=== PATIENT | male | born 1985 | race Caucasian/White ===

== ENCOUNTER 2023-11-17 19:19 | Inpatient (IN) ==
[2023-11-17] MEDS: Ondansetron 4 mg VIAL 2 MG/ML 2 ml VIAL IV ONE (19:41)
[2023-11-17] MEDS: fentaNYL 100 mcg/2 ml 50 MCG/ML VIAL IV SLOW PU ONE (19:41)
[2023-11-17] MEDS: Lactated Ringers 1000 ml BAG 1,000 ML IV ONE ×2 (19:41→21:47)
[2023-11-17 19:57] LABS: ABS Basophils 0.2 10^3/uL (0.0-0.1); ABS Monocytes 0.6 10^3/uL (0.0-1.1); ABS Neutrophils 10.3 10^3/uL (1.5-7.6); ABS Nucleated RBC 0.01 10^3/ul; Eosinophil % 0.3 %; Hematocrit 43.1 % (38-53); Hemoglobin 14.9 g/dL (13.2-16.3); Mean Corpuscular Hemoglobin 30.6 pg (27-33); Mean Corpuscular Hgb Conc 34.5 g/dL (31-36); Mean Corpuscular Volume 88.7 fL (80-97); Mean Platelet Volume 8.5 fL (7.5-11.2); Nucleated Red Blood Cells % 0.1 %/100WBC (0.0-0.8); Platelet Count 245 10^3/uL (150-450); Red Blood Count 4.86 10^6/uL (4.06-5.63); Red Cell Distribution Width 14.4 % (12-17); White Blood Count 13.2 10^3/uL (3.6-10.2)
[2023-11-17 20:14] LABS: Albumin 4.6 g/dL (3.2-5.2); Calcium 9.7 mg/dL (8.6-10.3); Creatinine, Serum 0.99 mg/dL (0.67-1.17); Globulin 2.3 g/dL (2-4); Potassium 3.6 mmol/L (3.5-5.0); Total Bilirubin 0.6 mg/dL (0.2-1.0); Total Protein 6.9 g/dL (6.4-8.9); eGFR CKD-EPI 101.2 (>60)
[2023-11-17] MEDS ORDERED: Morphine 4 MG/ML VIAL (1 ml) IV PRN ×2 (20:42→22:08)
[2023-11-17] MEDS ORDERED: Morphine 2 MG/ML SYRINGE IV PRN (20:42)
[2023-11-17] MEDS ORDERED: Ondansetron ODT 4 mg TAB 4 MG TAB SL PRN (20:44)
[2023-11-17] MEDS: Morphine 4 MG/ML VIAL (1 ml) IV ONE ×2 (21:46→22:34)
[2023-11-17] MEDS: Acetaminophen IV 1 GM/100ML 1,000 MG/100 ML BAG IV SCH (21:46)
[2023-11-18] MEDS ORDERED: HYDROmorphone 0.5 MG/0.5 ML SYRINGE IV SLOW PU PRN (00:45)
[2023-11-18] MEDS: fentaNYL 100 mcg/2 ml 50 MCG/ML VIAL IV SLOW PU PRN (00:58)
[2023-11-18] MEDS: HYDROmorphone 0.5 MG/0.5 ML SYRINGE IV SLOW PU PRN (03:00)
[2023-11-18 06:00] LABS: ABS Lymphocytes 1.2 10^3/uL (1.0-4.8); ABS Monocytes 0.8 10^3/uL (0.0-1.1); Hematocrit 37.2 % (38-53); Lymphocyte % 13.2 %; Mean Corpuscular Volume 88.4 fL (80-97); Mean Platelet Volume 8.3 fL (7.5-11.2); Platelet Count 201 10^3/uL (150-450); Red Cell Distribution Width 14.2 % (12-17)
[2023-11-18 06:23] LABS: Calcium 8.6 mg/dL (8.6-10.3); Creatinine, Serum 0.89 mg/dL (0.67-1.17); Magnesium 1.7 mg/dL (1.9-2.7); Potassium 3.7 mmol/L (3.5-5.0); eGFR CKD-EPI 113.9 (>60)
[2023-11-18] MEDS: Magnesium Sulfate IV 1GM/100ML 1 GM/100 ML BAG IV ONE (09:04)
[2023-11-18] MEDS: Polyethylene Glycol 3350 17 GM PACKET PO SCH (09:16)
[2023-11-18] MEDS ORDERED: Enoxaparin 40 MG/0.4 ML SYR SUBCUT SCH (11:00)
[2023-11-18] MEDS ORDERED: Propofol 10 MG/ML 20 ML BTL ONE (14:47)
[2023-11-18] MEDS ORDERED: fentaNYL 100 mcg/2 ml 50 MCG/ML VIAL ONE ×2 (14:49→18:04)
[2023-11-18] MEDS ORDERED: Midazolam 2 mg/2 ml VIAL 1 mg/ml 2 ml VIAL (2 mg) ONE (14:50)
[2023-11-18] MEDS ORDERED: ceFAZolin 2 GM in NS PREMIX 2 GM/100 ML BAG IVPB ONE (15:15)
[2023-11-18] MEDS ORDERED: Bupivacaine 0.5% 50 ML MDV VIAL ONE (15:35)
[2023-11-18] MEDS ORDERED: Rocuronium 50 mg VIAL 10 mg/ml 5 ml VIAL (50 mg) ONE (15:56)
[2023-11-18] MEDS ORDERED: HYDROmorphone 0.5 MG/0.5 ML SYRINGE ONE ×2 (16:26→16:44)
[2023-11-18] MEDS ORDERED: Naloxone 0.4 mg VIAL 0.4 mg/ml 1 ml VIAL IV PRN ×2 (17:42)
[2023-11-18 18:07] LABS: Hematocrit 38.7 % (38-53); Hemoglobin 13.3 g/dL (13.2-16.3)
[2023-11-18] MEDS: fentaNYL 100 mcg/2 ml 50 MCG/ML VIAL IV PRN (18:07)
[2023-11-18] MEDS ORDERED: Magnesium Hydroxide LIQ 30 ML UDC PO PRN (20:01)
[2023-11-18] MEDS: Enoxaparin 40 MG/0.4 ML SYR SUBCUT SCH (21:16)
[2023-11-18] MEDS: Lactated Ringers 1000 ml BAG 1,000 ML IV SCH (21:18)
[2023-11-18] MEDS: Senna TAB 8.6 mg TAB PO SCH (21:19)
[2023-11-18] MEDS: Lactulose 30 ml UDC PO SCH (21:20)
[2023-11-18] MEDS: Magnesium Hydroxide LIQ 30 ML UDC PO SCH (21:20)
[2023-11-19] MEDS: ceFAZolin 1 GM ADVAN 1 GM in NS 0.9% 50 ML 50 ML IVPB SCH (00:34)
[2023-11-19] MEDS: Morphine 2 MG/ML SYRINGE IV PRN (03:58)
[2023-11-19 06:05] LABS: ABS Lymphocytes 1.5 10^3/uL (1.0-4.8); ABS Monocytes 1.2 10^3/uL (0.0-1.1); ABS Neutrophils 7.9 10^3/uL (1.5-7.6); Hematocrit 32.2 % (38-53); Hemoglobin 11.3 g/dL (13.2-16.3); Mean Corpuscular Hgb Conc 35.1 g/dL (31-36); Mean Corpuscular Volume 88.2 fL (80-97); Mean Platelet Volume 8.3 fL (7.5-11.2); Platelet Count 222 10^3/uL (150-450); Red Blood Count 3.65 10^6/uL (4.06-5.63); Red Cell Distribution Width 14.2 % (12-17); White Blood Count 10.6 10^3/uL (3.6-10.2)
[2023-11-19 06:26] LABS: Albumin 3.9 g/dL (3.2-5.2); Albumin/Globulin Ratio 1.9 (1-3); Calcium 8.8 mg/dL (8.6-10.3); Creatinine, Serum 0.85 mg/dL (0.67-1.17); Globulin 2.1 g/dL (2-4); Potassium 4.2 mmol/L (3.5-5.0); eGFR CKD-EPI 115.5 (>60)
[2023-11-19] MEDS: Enoxaparin 40 MG/0.4 ML SYR SUBCUT SCH (12:18)
[2023-11-20 06:46] LABS: Hematocrit 27.2 % (38-53); Hemoglobin 9.7 g/dL (13.2-16.3); Mean Platelet Volume 8.4 fL (7.5-11.2); Platelet Count 168 10^3/uL (150-450)
[2023-11-20 07:03] LABS: Albumin 3.6 g/dL (3.2-5.2); Albumin/Globulin Ratio 1.6 (1-3); Calcium 8.6 mg/dL (8.6-10.3); Creatinine, Serum 0.76 mg/dL (0.67-1.17); Globulin 2.3 g/dL (2-4); Potassium 3.7 mmol/L (3.5-5.0); Total Bilirubin 0.7 mg/dL (0.2-1.0); Total Protein 5.9 g/dL (6.4-8.9); eGFR CKD-EPI 119.5 (>60)
[2023-11-20] MEDS: Potassium Chlor 20 meq TAB.ER PO ONE (09:18)
[2023-11-20] MEDS: Lactated Ringers 1000 ml BAG 1,000 ML IV SCH (09:20)
[2023-11-20 12:02] LABS: ABS Lymphocytes 1.9 10^3/uL (1.0-4.8); ABS Monocytes 0.8 10^3/uL (0.0-1.1); ABS Neutrophils 3.6 10^3/uL (1.5-7.6); ABS Nucleated RBC 0.01 10^3/ul; Eosinophil % 0.7 %; Hematocrit 25.8 % (38-53); Hemoglobin 9.3 g/dL (13.2-16.3); Lymphocyte % 29.5 %; Mean Corpuscular Hemoglobin 31.6 pg (27-33); Mean Corpuscular Hgb Conc 35.9 g/dL (31-36); Nucleated Red Blood Cells % 0.2 %/100WBC (0.0-0.8); Platelet Count 191 10^3/uL (150-450); Red Blood Count 2.94 10^6/uL (4.06-5.63); Red Cell Distribution Width 14.1 % (12-17); White Blood Count 6.4 10^3/uL (3.6-10.2)
[2023-11-20 13:46] VITALS: BP 117/63
== END 2023-11-20 17:11 | disposition home or self-care (01) | DRG 308 ==
LOC: ED 19:19 → SUATTDRO 20:41 → EDHOLD 20:41 → SSU 23:06
PROVIDERS: ADMIT Internal Medicine; ATTEND Student in an Organized Health Care Education/Training Program